=== PATIENT | female | born 1955 | race Caucasian/White ===

== ENCOUNTER 2022-09-19 11:09 | Observation (INO) | payer BC, MEDICARE ==
[2022-09-19] MEDS ORDERED: KETOROLAC 15 MG/ML 1 ML VIAL IVP STA (12:08)
[2022-09-19] MEDS ORDERED: SODIUM CHLORIDE 0.9% 500 ML 500 ML IV STA (12:08)
--- NOTE | 2022-09-19 12:13 | ED ---
General Adult HPI - General Chief complaint: Abdominal Pain Stated complaint: Recheck Time Seen by Provider: 09/19/22 11:40 Source: patient, RN notes reviewed, old records reviewed Mode of arrival: ambulatory Limitations: no limitations - History of Present Illness Initial comments: This is a 67-year-old female presents emergency pertinent stating she had a couple sharp pains in her CVA area on Thursday and Thursday however once he started having severe pain in the CVA area that wraps around to the front under her right breast. Patient states that taking deep breath makes it worse movement makes it worse but the pain is now quite severe. Patient denies any chest pain. Patient denies shortness of breath but it is painful to take a deep breath. P atient denies any fever chills per patient denies abdominal pain patient denies nausea vomiting diarrhea. - Related Data Allergies Allergy/AdvReac Type Severity Reaction Status Date / Time No Known Allergies Allergy Verified 09/19/22 11:25 Review of Systems ROS Statement: Those systems with pertinent positive or pertinent negative responses have been documented in the HPI. ROS Other: All systems not noted in ROS Statement are negative. Past Medical History Past Medical History: No Reported History History of Any Multi-Drug Resistant Organisms: None Reported Past Surgical History: Section, Cholecystectomy Additional Past Surgical History / Comment(s): c section x 3, B cataract, B knee, L foot achilles tendon correction, d&c Past Psychological History: No Psychological Hx Reported Smoking Status: Never smoker Past Alcohol Use History: Occasional Past Drug Use History: None Reported General Exam - General Exam Comments Initial Comments: GENERAL: Patient is well-developed and well-nourished. Patient is nontoxic and well- hydrated and is in moderate distress. ENT: Neck is soft and supple. No significant lymphadenopathy is noted. Oropharynx is clear. Moist mucous membranes. Neck has full range of motion without eliciting any pain. EYES: The sclera were anicteric and conjunctiva were pink and moist. Extraocular movements were intact and pupils were equal round and reactive to light. Eyelids were unremarkable. PULMONARY: Unlabored respirations. Good breath sounds bilaterally. No audible rales rhonchi or wheezing was noted. CARDIOVASCULAR: There is a regular rate and rhythm without any murmurs gallops or rubs. Patient has pain on palpation in the CVA area as well as on the flank. ABDOMEN: Soft and nontender with normal bowel sounds. SKIN: Skin is clear with no lesions or rashes and otherwise unremarkable. NEUROLOGIC: Patient is alert and oriented x3. Cranial nerves II through XII are grossly intact. Motor and sensory are also intact. Normal speech, volume and content. Symmetrical smile. MUSCULOSKELETAL: Normal extremities with adequate strength and full range of motion. LYMPHATICS: No significant lymphadenopathy is noted PSYCHIATRIC: Normal psychiatric evaluation. Limitations: no limitations Course Vital Signs 09/19/22 09/19/22 11:26 13:46 Temperature 98.9 F Pulse Rate 111 H 97 Respiratory 1 L 18 Rate Blood Pressure 134/68 125/58 O2 Sat by Pulse 95 95 Oximetry Medical Decision Making - Medical Decision Making Was pt. sent in by a medical professional or institution (, PA, INSURANCE SALES PRODUCER, urgent care, hospital, or detention...) When possible be specific @ -No Did you speak to anyone other than the patient for history (EMS, parent, family, police, friend...)? What history was obtained from this source @ -No Did you review nursing and triage notes (agree or disagree)? Why? @ -I reviewed and agree with nursing and triage notes Were old charts reviewed (outside hosp., previous admission, EMS record, old EKG, old radiological studies, urgent care reports/EKG's, detention records)? Report findings @ -I reviewed prior radiological studies and prior laboratory work on this patient Differential Diagnosis (chest pain, altered mental status, abdominal pain women, abdominal pain men, vaginal bleeding, weakness, fever, dyspnea, syncope, headache, dizziness, GI bleed, back pain, seizure, CVA, palpatations, mental health, musculoskeletal)? @ -Differential Dyspnea: Coronary syndrome, arrhythmia, tamponade, asthma, COPD, pulmonary embolism, pneumonia, pneumothorax, pulmonary effusion, anaphylaxis, diabetic ketoacidosis, flailed chest, pulmonary contusion, diaphragmatic rupture, anemia, neuromuscular, this is not meant to be an all-inclusive list. EKG interpreted by me (3pts min.). @ -As above X-rays interpreted by me (1pt min.). @ -Chest x-ray showed no acute abnormality. CT interpreted by me (1pt min.). @ -CT of the chest showed no pulmonary embolism in the right lower lobe U/S interpreted by me (1pt. min.). @ -None done What testing was considered but not performed or refused? (CT, X-rays, U/S, labs)? Why? @ -None What meds were considered but not given or refused? Why? @ -None Did you discuss the management of the patient with other professionals (professionals i.e. , PA, INSURANCE SALES PRODUCER, lab, RT, psych nurse, director social welfare, bisque kiln placer, teacher, property disposal officer, social work case manager)? Give summary @ -I spoke with Dr. Nichole he agreed to admit the patient Was smoking cessation discussed for >3mins.? @ -No Was critical care preformed (if so, how long)? @ -35 minutes Were there social determinants of health that impacted care today? How? (Homelessness, low income, unemployed, alcoholism, drug addiction, transportation, low edu. Level, literacy, decrease access to med. care, assisted, rehab)? @ -No Was there de-escalation of care discussed even if they declined (Discuss DNR or withdrawal of care, Hospice)? DNR status @ -No What co-morbidities impacted this encounter? (DM, HTN, Smoking, COPD, CAD, Cancer, CVA, ARF, Chemo, Hep., AIDS, mental health diagnosis, sleep apnea, morbid obesity)? @ -None Was patient admitted / discharged? Hospital course, mention meds given and route, prescriptions, significant lab abnormalities, going to OR and other pertinent info. @ -Patient had a pulmonary embolism on the computed tomography scan so I started the patient on high-dose heparin. I spoke with because he agreed to admit the patient admitted the patient I wrote admitting orders I consulted cardiology. There was no right heart strain according to the radiologist Undiagnosed new problem with uncertain prognosis? @ -No Drug Therapy requiring intensive monitoring for toxicity (Heparin, Nitro, Insulin, Cardizem)? @ -No Were any procedures done? @ -No Diagnosis/symptom? @ -Pulmonary embolism Acute, or Chronic, or Acute on Chronic? @ -Acute Uncomplicated (without systemic symptoms) or Complicated (systemic symptoms)? @ -Complicated Side effects of treatment? @ -No Exacerbation, Progression, or Severe Exacerbation? @ -No Poses a threat to life or bodily function? How? (Chest pain, [place], [place], pneumonia, PE, COPD, DKA, ARF, appy, cholecystitis, CVA, Diverticulitis, Homicidal, Suicidal, threat to staff... and all critical care pts) @ -Yes this can lead to hypoxia and end organ dysfunction - Lab Data Result diagrams: 09/19/22 12:13 09/19/22 12:13 Lab Results 09/19/22 09/19/22 09/19/22 Range/Units 12:13 12:13 12:13 WBC 7.9 (3.8-10.6) k/uL RBC 4.94 (3.80-5.40) m/uL Hgb 14.2 (11.4-16.0) gm/dL Hct 42.5 (34.0-46.0) % MCV 86.0 (80.0-100.0) fL MCH 28.8 (25.0-35.0) pg MCHC 33.5 (31.0-37.0) g/dL RDW 14.2 (11.5-15.5) % Plt Count 219 (150-450) k/uL MPV 7.6 Neutrophils % 80 % Lymphocytes % 12 % Monocytes % 6 % Eosinophils % 0 % Basophils % 0 % Neutrophils # 6.3 (1.3-7.7) k/uL Lymphocytes # 0.9 L (1.0-4.8) k/uL Monocytes # 0.5 (0-1.0) k/uL Eosinophils # 0.0 (0-0.7) k/uL Basophils # 0.0 (0-0.2) k/uL PT 10.7 (9.0-12.0) sec INR 1.0 (<1.2) APTT 25.3 (22.0-30.0) sec D-Dimer 1.74 H (<0.60) mg/L FEU Sodium (137-145) mmol/L Potassium (3.5-5.1) mmol/L Chloride (98-107) mmol/L Carbon Dioxide (22-30) mmol/L Anion Gap mmol/L BUN (7-17) mg/dL Creatinine (0.52-1.04) mg/dL Est GFR (CKD-EPI)AfAm (>60 ml/min/1.73 sqM) Est GFR (CKD-EPI)NonAf (>60 ml/min/1.73 sqM) Glucose (74-99) mg/dL Plasma Lactic Acid Ru[place] (0.7-2.0) mmol/L Calcium (8.4-10.2) mg/dL Total Bilirubin (0.2-1.3) mg/dL AST (14-36) U/L ALT (4-34) U/L Alkaline Phosphatase (38-126) U/L Total Protein (6.3-8.2) g/dL Albumin (3.5-5.0) g/dL Amylase (30-110) U/L Lipase (23-300) U/L Urine Color Yellow Urine Appearance Clear (Clear) Urine pH 6.5 (5.0-8.0) Ur Specific [place] 1.031 (1.001-1.035) Urine Protein 1+ H (Negative) Urine Glucose (UA) Negative (Negative) Urine Ketones 1+ H (Negative) Urine Blood Negative (Negative) Urine Nitrite Negative (Negative) Urine Bilirubin Negative (Negative) Urine Urobilinogen 2.0 (<2.0) mg/dL Ur Leukocyte Esterase Trace H (Negative) Urine RBC 4 (0-5) /hpf Urine WBC 3 (0-5) /hpf Ur Squamous Epith Cells 1 (0-4) /hpf Urine Mucus Many H (None) /hpf 09/19/22 09/19/22 Range/Units 12:13 12:13 WBC (3.8-10.6) k/uL RBC (3.80-5.40) m/uL Hgb (11.4-16.0) gm/dL Hct (34.0-46.0) % MCV (80.0-100.0) fL MCH (25.0-35.0) pg MCHC (31.0-37.0) g/dL RDW (11.5-15.5) % Plt Count (150-450) k/uL MPV Neutrophils % % Lymphocytes % % Monocytes % % Eosinophils % % Basophils % % Neutrophils # (1.3-7.7) k/uL Lymphocytes # (1.0-4.8) k/uL Monocytes # (0-1.0) k/uL Eosinophils # (0-0.7) k/uL Basophils # (0-0.2) k/uL PT (9.0-12.0) sec INR (<1.2) APTT (22.0-30.0) sec D-Dimer (<0.60) mg/L FEU Sodium 137 (137-145) mmol/L Potassium 4.4 (3.5-5.1) mmol/L Chloride 104 (98-107) mmol/L Carbon Dioxide 25 (22-30) mmol/L Anion Gap 8 mmol/L BUN 19 H (7-17) mg/dL Creatinine 0.70 (0.52-1.04) mg/dL Est GFR (CKD-EPI)AfAm >90 (>60 ml/min/1.73 sqM) Est GFR (CKD-EPI)NonAf 89 (>60 ml/min/1.73 sqM) Glucose 103 H (74-99) mg/dL Plasma Lactic Acid Ru[place] 1.0 (0.7-2.0) mmol/L Calcium 9.0 (8.4-10.2) mg/dL Total Bilirubin 1.5 H (0.2-1.3) mg/dL AST 37 H (14-36) U/L ALT 29 (4-34) U/L Alkaline Phosphatase 120 (38-126) U/L Total Protein 7.9 (6.3-8.2) g/dL Albumin 4.4 (3.5-5.0) g/dL Amylase 55 (30-110) U/L Lipase 125 (23-300) U/L Urine Color Urine Appearance (Clear) Urine pH (5.0-8.0) Ur Specific [place] (1.001-1.035) Urine Protein (Negative) Urine Glucose (UA) (Negative) Urine Ketones (Negative) Urine Blood (Negative) Urine Nitrite (Negative) Urine Bilirubin (Negative) Urine Urobilinogen (<2.0) mg/dL Ur Leukocyte Esterase (Negative) Urine RBC (0-5) /hpf Urine WBC (0-5) /hpf Ur Squamous Epith Cells (0-4) /hpf Urine Mucus (None) /hpf Critical Care Time Critical Care Time: Yes Total Critical Care Time: 35 Disposition Clinical Impression: Pulmonary embolism Disposition: ADMITTED IP TO THIS [facility] Referrals: Nonstaff,Physician [Primary Care Provider] - 1-2 days Time of Disposition: 14:43
[2022-09-19] MEDS: HYDROmorphone 0.5 MG/0.5 ML SYRINGE IVP STA ×2 (12:18→12:22)
[2022-09-19] MEDS ORDERED: HYDROmorphone 0.5 MG/0.5 ML SYRINGE IVP STA (12:22)
[2022-09-19 12:37] LABS: Basophils % (A) 0 %; Eosinophils % (A) 0 %; HCT 42.5 % (34.0-46.0); HGB 14.2 gm/dL (11.4-16.0); Lymphocytes # (A) 0.9 k/uL (1.0-4.8); Lymphocytes % (A) 12 %; MCH 28.8 pg (25.0-35.0); MCHC 33.5 g/dL (31.0-37.0); Mean Platelet Volume 7.6; Monocytes # (A) 0.5 k/uL (0-1.0); Monocytes % (A) 6 %; Neutrophils # (A) 6.3 k/uL (1.3-7.7); Neutrophils % (A) 80 %; Platelet Count 219 k/uL (150-450); RBC 4.94 m/uL (3.80-5.40); RDW 14.2 % (11.5-15.5); WBC 7.9 k/uL (3.8-10.6)
[2022-09-19 12:39] LABS: ALT 29 U/L (4-34); AST 37 U/L (14-36); African American GFR (CKD) >90 (>60 ml/min/1.73 sqM); Albumin 4.4 g/dL (3.5-5.0); Alkaline Phosphatase 120 U/L (38-126); Amylase 55 U/L (30-110); Anion Gap 8 mmol/L; Appearance,Urine Clear (Clear); Bilirubin,Urine Negative (Negative); Blood Urea Nitrogen 19 mg/dL (7-17); Blood,Urine Negative (Negative); Carbon Dioxide 25 mmol/L (22-30); Chloride 104 mmol/L (98-107); Color,Urine Yellow; Glucose 103 mg/dL (74-99); Glucose,Urine (UA) Negative (Negative); Ketones,Urine 1+ (Negative); Leukocyte Esterase,Urine Trace (Negative); Lipase 125 U/L (23-300); Mucus,Urine Many /hpf; Nitrite,Urine Negative (Negative); Non-African American GFR(CKD) 89 (>60 ml/min/1.73 sqM); PH, Urine 6.5 (5.0-8.0); Potassium 4.4 mmol/L (3.5-5.1); Protein,Urine 1+ (Negative); RBC,Urine 4 /hpf (0-5); Sodium 137 mmol/L (137-145); Specific Gravity,Urine 1.031 (1.001-1.035); Squamous Epithelial Cell,Urine 1 /hpf (0-4); Total Bilirubin 1.5 mg/dL (0.2-1.3); Total Protein 7.9 g/dL (6.3-8.2); WBC,Urine 3 /hpf (0-5)
--- NOTE | 2022-09-19 12:40 | XR ---
EXAMINATION TYPE: XR chest 2V DATE OF EXAM: 09/19/2022 COMPARISON: NONE HISTORY: Right-sided chest pain into back for 2 days. Abdominal pain. TECHNIQUE: Frontal and lateral views of the chest are obtained. FINDINGS: There is no focal air space opacity, pleural effusion, or pneumothorax seen. The cardiac silhouette size is within normal limits. Multilevel spurring in thoracic spine is seen. Cholecystecto my clips are noted. IMPRESSION: No acute cardiopulmonary process.
[2022-09-19 12:46] LABS: Partial Thromboplastin Time 25.3 sec (22.0-30.0); Prothrombin Time 10.7 sec (9.0-12.0)
--- NOTE | 2022-09-19 14:04 | CT ---
EXAMINATION TYPE: CT abdomen pelvis w con DATE OF EXAM: 09/19/2022 COMPARISON: None INDICATION: Right flank pain DLP: 1991.6 mGycm, Automated exposure control for dose reduction was used. CONTRAST: 100 mL of Isovue 370. Study performed without Oral Contrast TECHNIQUE: Axial images were obtained from above the diaphragm to the pubic rami in the axial plane a t 5 mm thick sections. Reconstructed images are reviewed on the computer in the coronal plane. FINDINGS: Limited CT sections are obtained the lung bases. Small right pleural effusion is present. Compressiv e atelectasis appears to be within the right lung base.. CT ABDOMEN: Liver: Normal Spleen: Normal Pancreas: Normal Adrenal glands: The adrenal glands are normal. Gallbladder: Surgically absent Kidneys: No masses are evident. No hydronephrosis is present. No cysts are present. Delayed images were obtained through the kidneys, which remain unremarkable. Aorta: Normal Inferior vena cava: Normal. CT PELVIS: Loops of bowel within the abdomen and pelvis are normal. This study is performed without oral con trast limiting bowel evaluation. Appendix: Not clearly identified. No dilated tubular structure or inflammatory change is evident. Urinary bladder: Normal. Genitourinary structures: Uterus appears normal. Adnexa are normal. Osseous structures: No suspicious lytic or sclerotic lesions. IMPRESSIONS: 1. Small right pleural effusion with adjacent compressive atelectasis. 2 no suspicious acute changes within the CT abdomen and pelvis.
[2022-09-19] MEDS ORDERED: HEPARIN SODIUM 1,000 UN/ML (10ML VL) IV ONE (14:09)
--- NOTE | 2022-09-19 14:13 | CT ---
CT CHEST FOR PULMONARY EMBOLISM. EXAMINATION TYPE: CT chest angio for PE DATE OF EXAM: 09/19/2022 INDICATION: Elevated d dimer, SOB CT DLP: 570 mGycm, Automated exposure control for dose reduction was used. CONTRAST: Patient injected with 100 mL of Isovue 370. COMPARISON: None TECHNIQUE: CT of the chest is performed on a spiral scan at 2 mm thick sections. Study is performed with intravenous contrast timed for evaluation for pulmonary embolism. This will limit additional po rtions of the evaluation. 3-D MIP images reconstructed by the technologist are reviewed on the compu ter in the coronal and sagittal planes. FINDINGS: There is some filling defect within right lower lobe pulmonary arteries. Distal pulmonary emboli appe ar to be present on the right lung base. No acute infiltrates are evident. No mediastinal or hilar adenopathy enlarged by CT criteria is evident. The ascending aorta diameter at the level of the main pulmonary artery is 3.3 cm. The main pulmonary artery diameter at the bifur cation is 2.6 cm. There is a small right pleural effusion with some mild compressive atelectasis adjacent. Limited CT section through the upper abdomen are unremarkable. IMPRESSIONS: 1. Acute right lower lobe pulmonary emboli. Report was called to the emergency room physician by Dr. Ackerman by telephone [id number] hours 09/19/2022. 2. Small right pleural effusion with adjacent mild compressive atelectasis.
[2022-09-19] MEDS: HEPARIN SOD,PORK IN 0.45% NACL 25,000 UNIT in 0.45% NACL 1 250ML.BAG IV SCH (14:31)
[2022-09-19] MEDS ORDERED: KETOROLAC 15 MG/ML 1 ML VIAL IVP PRN ×2 (14:43→15:46)
[2022-09-19] MEDS ORDERED: NALOXONE 0.4 MG/ML 1 ML VIAL IV PRN (14:43)
[2022-09-19] MEDS ORDERED: HYDROmorphone 0.5 MG/0.5 ML SYRINGE IVP PRN (14:43)
--- NOTE | 2022-09-19 16:33 | P.HPIM ---
History of Present Illness 67-year-old female came in with the sharp pleuritic chest pain on the right side, had a CT of the chest which showed right lower lobe pulmonary embolism. Patient denied any family history of PEs, patient denied any recent weight loss, to date with all his cancer screening procedures, denied any recent prolonged travel denied any calf pain, denied any recent surgery, troponin will be obtained. Echocardiogram will be obtained patient is presently on IV heparin if there is no right ventricular strain patient can be transitioned to oral anticoagulation can be discharged tomorrow. REVIEW OF SYSTEMS: CONSTITUTIONAL: No fever, no malaise, no fatigue. HEENT: No recent visual problems or hearing problems. Denied any sore throat. CARDIOVASCULAR: No orthopnea, PND, no palpitations, no syncope. PULMONARY: No shortness of breath, no cough, no hemoptysis. GASTROINTESTINAL: No diarrhea, no nausea, no vomiting, no abdominal pain. NEUROLOGICAL: No headaches, no weakness, no numbness. HEMATOLOGICAL: Denies any bleeding or petechiae. GENITOURINARY: Denies any burning micturition, frequency, or urgency. MUSCULOSKELETAL/RHEUMATOLOGICAL: Denies any joint pain, swelling, or any muscle pain. ENDOCRINE: Denies any polyuria or polydipsia. The rest of the 14-point review of systems is negative. PHYSICAL EXAMINATION: GENERAL: The patient is alert and oriented x3, not in any acute distress. Well developed, well nourished. HEENT: Pupils are round and equally reacting to light. EOMI. No scleral icterus. No conjunctival pallor. Normocephalic, atraumatic. No pharyngeal erythema. No thyromegaly. CARDIOVASCULAR: S1 and S2 present. No murmurs, rubs, or gallops. PULMONARY: Chest is clear to auscultation, no wheezing or crackles. ABDOMEN: Soft, nontender, nondistended, normoactive bowel sounds. No palpable organomegaly. MUSCULOSKELETAL: No joint swelling or deformity. EXTREMITIES: No cyanosis, clubbing, or pedal edema. NEUROLOGICAL: Gross neurological examination did not reveal any focal deficits. SKIN: No rashes. Assessment and plan Right lower lobe pulmonary embolism: Echocardiogram will be obtained to assess for right ankle strain, patient is on IV heparin which will be continued with is noted when questioned patient will be transitioned to oral anticoagulation and can be discharged tomorrow. Patient appears to have unprovoked DVT. Patient to be evaluated for procoagulant conditions in about 3-6 months after stopping the anticoagulation -Obesity Past Medical History Past Medical History: No Reported History History of Any Multi-Drug Resistant Organisms: None Reported Past Surgical History: Section, Cholecystectomy Additional Past Surgical History / Comment(s): c section x 3, B cataract, B knee, L foot achilles tendon correction, d&c Past Psychological History: No Psychological Hx Reported Smoking Status: Never smoker Past Alcohol Use History: Occasional Past Drug Use History: None Reported Medications and Allergies Home Medications Medication Instructions Recorded Confirmed Type Cholecalciferol (Vitamin D3) 75 mcg PO DAILY 09/19/22 09/19/22 History [Vitamin D3 (3000 Iu)] Ginkgo Biloba [place] Extract [Ginkgo] 60 mg PO DAILY 09/19/22 09/19/22 History Glucosam/Brandon-Msm1/C/Farhan/Bosw 1 tab PO DAILY 09/19/22 09/19/22 History [Glucosamine-Chondroitin Tablet] Multivitamins, Thera [Multivitamin 1 tab PO DAILY 09/19/22 09/19/22 History (formulary)] Turmeric Root Extract [Turmeric] 500 mg PO DAILY 09/19/22 09/19/22 History Vitamin B Complex 1 cap PO DAILY 09/19/22 09/19/22 History Allergies Allergy/AdvReac Type Severity Reaction Status Date / Time No Known Allergies Allergy Verified 09/19/22 14:51 Physical Exam Vitals: Vital Signs Temp Pulse Resp BP Pulse Ox 09/19/22 15:56 87 18 144/62 95 09/19/22 13:46 97 18 125/58 95 09/19/22 11:26 98.9 F 111 H 1 L 134/68 95 Intake and Output 09/19/22 09/19/22 09/19/22 06:59 14:59 22:59 Other: Weight 122.924 kg Results CBC & Chem 7: 09/19/22 12:13 09/19/22 12:13 Labs: Abnormal Lab Results - Last 24 Hours (Table) 09/19/22 09/19/22 09/19/22 Range/Units 12:13 12:13 12:13 Lymphocytes # 0.9 L (1.0-4.8) k/uL D-Dimer 1.74 H (<0.60) mg/L FEU BUN (7-17) mg/dL Glucose (74-99) mg/dL Total Bilirubin (0.2-1.3) mg/dL AST (14-36) U/L Urine Protein 1+ H (Negative) Urine Ketones 1+ H (Negative) Ur Leukocyte Esterase Trace H (Negative) Urine Mucus Many H (None) /hpf 09/19/22 Range/Units 12:13 Lymphocytes # (1.0-4.8) k/uL D-Dimer (<0.60) mg/L FEU BUN 19 H (7-17) mg/dL Glucose 103 H (74-99) mg/dL Total Bilirubin 1.5 H (0.2-1.3) mg/dL AST 37 H (14-36) U/L Urine Protein (Negative) Urine Ketones (Negative) Ur Leukocyte Esterase (Negative) Urine Mucus (None) /hpf
[2022-09-19] MEDS: FAMOTIDINE 20 MG TAB PO SCH (20:06)
[2022-09-20] MEDS: HEPARIN SOD,PORK IN 0.45% NACL 25,000 UNIT in 0.45% NACL 1 250ML.BAG IV SCH (03:45)
[2022-09-20 05:11] LABS: HCT 35.7 % (34.0-46.0); HGB 11.9 gm/dL (11.4-16.0); MCHC 33.4 g/dL (31.0-37.0); MCV 86.7 fL (80.0-100.0); Mean Platelet Volume 7.8; Platelet Count 190 k/uL (150-450); RBC 4.12 m/uL (3.80-5.40); RDW 14.2 % (11.5-15.5); WBC 7.6 k/uL (3.8-10.6)
[2022-09-20 05:40] LABS: African American GFR (CKD) >90 (>60 ml/min/1.73 sqM); Anion Gap 7 mmol/L; Blood Urea Nitrogen 20 mg/dL (7-17); Calcium 8.3 mg/dL (8.4-10.2); Carbon Dioxide 23 mmol/L (22-30); Chloride 104 mmol/L (98-107); Glucose 107 mg/dL (74-99); Non-African American GFR(CKD) >90 (>60 ml/min/1.73 sqM); Potassium 3.8 mmol/L (3.5-5.1); Sodium 134 mmol/L (137-145)
[2022-09-20] MEDS: FAMOTIDINE 20 MG TAB PO SCH (09:00)
[2022-09-20] MEDS ORDERED: APIXABAN 5 MG TAB PO SCH (09:00)
--- NOTE | 2022-09-20 09:11 | P.CRDCN ---
History of Present Illness History of present illness: HISTORY OF PRESENT ILLNESS: This is a 67-year-old female with a past medical history of obstructive sleep apnea with CPAP use and morbid obesity. 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 We have been asked to see the patient in consultation for pulmonary embolism. Patient examined at the bedside. Patient states she started having shortness of breath on Thursday. She states that she had pain in her lower back that wrapped around to the front. She states that the shortness of breath continued so yesterday she went to urgent care to get evaluated and was instructed to come to the emergency room. Patient underwent CTA and was found to have acute right lower lobe pulmonary embolism. She was started on IV heparin. The patient denies any chest pain or pressure. She continues to report mild shortness of breath this morning she is on room air maintaining oxygen saturations greater than 92%. She denies a history of DVT/PE. Denies a family history of DVT/PE. Patient states she has not been immobile recently. Denies any recent travel. Patient is a nonsmoker. She denies any drug use or marijuana use. She reports rare alcohol use. * EKG reveals sinus mechanism with no signs of acute ischemia * Chest xray negative for acute process * Laboratory data: WBC 7.6. Hemoglobin 11.9. Platelet count 190. D-dimer 1.74. Sodium 134. Potassium 3.8. BUN 20. Creatinine 0.62. Troponin negative 2. * Current home cardiac medications include none REVIEW OF SYSTEMS: At the time of my exam: CONSTITUTIONAL: Denies fever or chills. HEENT: Denies blurred vision, vision changes, or eye pain. Denies hemoptysis CARDIOVASCULAR: Denies chest pain. Denies orthopnea. Denies PND. Denies palpitations RESPIRATORY: Reports shortness of breath. GASTROINTESTINAL: Denies abdominal pain. Denies nausea or vomiting. HEMATOLOGIC: Denies bleeding disorders. GENITOURINARY: Denies any blood in urine. SKIN: Denies pruitis. Denies rash. PHYSICAL EXAM: VITAL SIGNS: Reviewed. GENERAL: Well-developed in no acute distress. HEENT: Head is normocephalic. Pupils are equal, round. Sclerae anicteric. Mucous membranes of the mouth are moist. Neck supple. No JVD or thyromegaly LUNGS: Respirations even and unlabored. Lungs essentially clear to auscultation bilaterally. HEART: Regular rate and rhythm. S1 and S2 heard. ABDOMEN: Soft. Nondistended. Nontender. EXTREMITIES: Normal range of motion. No clubbing or cyanosis. Peripheral pulses intact. No lower extremity edema NEUROLOGIC: Awake and alert. Oriented x 3. ASSESSMENT: Shortness of breath Acute right lower lobe pulmonary embolism Obstructive sleep apnea with CPAP use Morbid obesity: BMI 42.4 PLAN: No evidence of heart strain on CTA. 2-D echo ordered. Await results Discontinue IV heparin. Begin Eliquis 10mg BID x 7 days then decrease to 5 mg BID Continue telemetry monitoring Further recommendations pending patient's course Nurse practitioner note has been reviewed by physician. Signing provider agrees with the documented findings, assessment, and plan of care. Past Medical History Past Medical History: No Reported History History of Any Multi-Drug Resistant Organisms: None Reported Past Surgical History: Section, Cholecystectomy Additional Past Surgical History / Comment(s): c section x 3, B cataract, B knee, L foot achilles tendon correction, d&c Past Anesthesia/Blood Transfusion Reactions: Previous Problems w/ Anesthesia Additional Past Anesthesia/Blood Transfusion Reaction / Comment(s): problems maintaining airway. Past Psychological History: No Psychological Hx Reported Smoking Status: Never smoker Past Alcohol Use History: Occasional Past Drug Use History: None Reported Medications and Allergies Home Medications Medication Instructions Recorded Confirmed Type Cholecalciferol (Vitamin D3) 75 mcg PO DAILY 09/19/22 09/19/22 History [Vitamin D3 (3000 Iu)] Ginkgo Biloba [place] Extract [Ginkgo] 60 mg PO DAILY 09/19/22 09/19/22 History Glucosam/Brandon-Msm1/C/Farhan/Bosw 1 tab PO DAILY 09/19/22 09/19/22 History [Glucosamine-Chondroitin Tablet] Multivitamins, Thera [Multivitamin 1 tab PO DAILY 09/19/22 09/19/22 History (formulary)] Turmeric Root Extract [Turmeric] 500 mg PO DAILY 09/19/22 09/19/22 History Vitamin B Complex 1 cap PO DAILY 09/19/22 09/19/22 History Allergies Allergy/AdvReac Type Severity Reaction Status Date / Time No Known Allergies Allergy Verified 09/19/22 14:51 Physical Exam Vitals: Vital Signs Temp Pulse Pulse Resp BP BP Pulse Ox 09/20/22 04:00 105 H 16 121/73 95 09/20/22 00:00 118 H 16 136/80 94 L 09/19/22 20:00 98.3 F 93 16 120/72 94 L 09/19/22 17:00 98.2 F 98 19 136/79 97 09/19/22 15:56 87 18 144/62 95 09/19/22 13:46 97 18 125/58 95 09/19/22 11:26 98.9 F 111 H 1 L 134/68 95 Intake and Output 09/19/22 09/20/22 09/20/22 22:59 06:59 14:59 Intake Total 265.251 669.688 Balance 265.251 669.688 Intake: Intake, IV Titration 155.251 129.688 Amount Heparin Sod,Pork in 0.45% 155.251 129.688 NaCl 25,000 unit In 0.45 % NaCl 1 250ml.bag @ 18 UNITS/KG/HR 22.126 mls/hr IV .[id number] [facility] Rx#: [id number] Oral 110 540 Other: Voiding Method Toilet Toilet # Voids 1 Weight 122.924 kg Results 09/20/22 04:42 09/20/22 04:42 Cardiac Enzymes 09/19/22 09/19/22 09/20/22 Range/Units 12:05 12:13 04:42 AST 37 H (14-36) U/L Troponin I <0.012 <0.012 (0.000-0.034) ng/mL Coagulation 09/19/22 09/19/22 09/20/22 Range/Units 12:13 20:52 04:42 PT 10.7 (9.0-12.0) sec APTT 25.3 >200.0 H* 133.1 H* (22.0-30.0) sec CBC 09/19/22 09/20/22 Range/Units 12:13 04:42 WBC 7.9 7.6 (3.8-10.6) k/uL RBC 4.94 4.12 (3.80-5.40) m/uL Hgb 14.2 11.9 (11.4-16.0) gm/dL Hct 42.5 35.7 (34.0-46.0) % Plt Count 219 190 (150-450) k/uL Comprehensive Metabolic Panel 09/19/22 09/20/22 Range/Units 12:13 04:42 Sodium 137 134 L (137-145) mmol/L Potassium 4.4 3.8 (3.5-5.1) mmol/L Chloride 104 104 (98-107) mmol/L Carbon Dioxide 25 23 (22-30) mmol/L BUN 19 H 20 H (7-17) mg/dL Creatinine 0.70 0.62 (0.52-1.04) mg/dL Glucose 103 H 107 H (74-99) mg/dL Calcium 9.0 8.3 L (8.4-10.2) mg/dL AST 37 H (14-36) U/L ALT 29 (4-34) U/L Alkaline Phosphatase 120 (38-126) U/L Total Protein 7.9 (6.3-8.2) g/dL Albumin 4.4 (3.5-5.0) g/dL Current Medications Generic Name Dose Route Start Last Admin Trade Name Freq PRN Reason Stop Dose Admin Famotidine 20 mg 09/19/22 21:00 09/19/22 20:06 Famotidine 20 Mg Tab PO 20 mg BID ADALBERTO Administration Hydromorphone HCl 0.5 mg 09/19/22 14:43 Hydromorphone 0.5 Mg/0.5 Ml Syringe IVP Q3HR PRN Moderate Pain (Scale 4 to 6) Heparin Sodium/Sodium Chloride 250 mls @ 22.126 mls/hr 09/19/22 14:15 09/20/22 06:42 25,000 unit/ Sodium Chloride IV 12 units/kg/hr .[id number] ADALBERTO 14.751 mls/hr Titration Protocol 18 UNITS/KG/HR Ketorolac Tromethamine 15 mg 09/19/22 15:46 Ketorolac 15 Mg/Ml 1 Ml Vial IVP 09/24/22 15:47 Q6HR PRN Pain Naloxone HCl 0.2 mg 09/19/22 14:43 Naloxone 0.4 Mg/Ml 1 Ml Vial IV Q2M PRN Opioid Reversal Intake and Output 09/19/22 09/20/22 09/20/22 22:59 06:59 14:59 Intake Total 265.251 669.688 Balance 265.251 669.688 Intake: Intake, IV Titration 155.251 129.688 Amount Heparin Sod,Pork in 0.45% 155.251 129.688 NaCl 25,000 unit In 0.45 % NaCl 1 250ml.bag @ 18 UNITS/KG/HR 22.126 mls/hr IV .[id number] [facility] Rx#: [id number] Oral 110 540 Other: Voiding Method Toilet Toilet # Voids 1 Weight 122.924 kg 09/20/22 04:42 09/20/22 04:42
--- NOTE | 2022-09-20 10:21 | CA ---
Transthoracic Echo Report Name: Nora Lechuga Age: 67 Gender: F : 1955 Exam Date: 09/19/2022 14:59 Exam Location: [facility] Ht (in): 67 Wt (lb): 271 Ordering Physician: Kade Tai MD Attending/Referring Phys: Certified Legal Secretary Specialist Linden Mcgovern Procedure CPT: Indications: Pulmonary Embolism Cardiac Hx: Technical Quality: Fair Contrast 1: Total Dose (mL): Contrast 2: Total Dose (mL): MEASUREMENTS (Male / Female) Normal Values 2D ECHO LV Diastolic Diameter PLAX 5.0 cm 4.2 - 5.9 / 3.9 - 5.3 cm LV Systolic Diameter PLAX 3.6 cm IVS Diastolic Thickness 1.0 cm 0.6 - 1.0 / 0.6 - 0.9 cm LVPW Diastolic Thickness 1.1 cm 0.6 - 1.0 / 0.6 - 0.9 cm LV Relative Wall Thickness 0.4 RV Internal Dim ED PLAX 3.0 cm LVOT Diameter 2.2 cm Aortic Root Diameter 2.5 cm LA Systolic Diameter LX 3.3 cm 3.0 - 4.0 / 2.7 - 3.8 cm LV Diastolic Volume MOD BP 57.0 cm??? 67 - 155 / 56 - 104 cm??? LV Systolic Volume MOD BP 14.9 cm??? 22 - 58 / 19 - 49 cm??? LV Ejection Fraction MOD BP 73.9 % >= 55 % LV Diastolic Volume MOD 4C 75.5 cm??? LV Systolic Volume MOD 4C 22.2 cm??? LV Ejection Fraction MOD 4C 70.6 % LV Diastolic Length 4C 7.7 cm LV Systolic Length 4C 6.3 cm LV Diastolic Volume MOD 2C 40.6 cm??? LV Systolic Volume MOD 2C 9.6 cm??? LV Ejection Fraction MOD 2C 76.4 % LV Diastolic Length 2C 7.2 cm LV Systolic Length 2C 6.0 cm LA Volume 49.5 cm??? 18 - 58 / 22 - 52 cm??? Ascending Aorta Diameter 3.1 cm DOPPLER AV Peak Velocity 166.9 cm/s AV Peak Gradient 11.1 mmHg AV Mean Velocity 118.9 cm/s AV Mean Gradient 6.8 mmHg AV Velocity Time Integral 37.9 cm LVOT Peak Velocity 100.2 cm/s LVOT Peak Gradient 4.0 mmHg LVOT Velocity Time Integral 23.7 cm LVOT Stroke Volume 88.5 cm??? LVOT Stroke Volume Index 38.5 ml/m??? AV Area Cont Eq vti 2.3 cm??? AV Area Cont Eq pk 2.2 cm??? MV Peak Velocity 136.8 cm/s MV Peak Gradient 7.5 mmHg MV Mean Velocity 59.4 cm/s MV Mean Gradient 1.9 mmHg MV Velocity Time Integral 32.3 cm MV Area PHT 6.2 cm??? MR Peak Velocity 139.8 cm/s MR Peak Gradient 7.8 mmHg Mitral E Point Velocity 85.0 cm/s Mitral A Point Velocity 130.8 cm/s Mitral E to A Ratio 0.6 MV Deceleration Time 122.6 ms MV E' Velocity 5.6 cm/s Mitral E to MV E' Ratio 15.1 FINDINGS Left Ventricle Normal LV size . Mildly increased septal wall thickness. Mildly increased posterior wall thickness. Left ventricular ejection fraction is estimated at 50-55 %. Right Ventricle Normal right ventricular size. Right Atrium Normal right atrial size. Left Atrium Normal left atrial size. Mitral Valve Structurally normal mitral valve. No mitral regurgitation. No mitral stenosis. Aortic Valve Aortic valve not well visualized. No aortic valve stenosis or regurgitation. Tricuspid Valve Tricuspid valve not well visualized. Trace TR. Pulmonic Valve Pulmonic valve not well visualized. No pulmonic regurgitation. Pericardium Normal pericardium. Aorta Normal size aortic root and proximal ascending aorta. CONCLUSIONS Normal LV systolic function Previewed by: Dr. Curly Sotomayor MD (Electronically Signed) Final Date: 20 September 2022 10:20
[2022-09-20 12:24] VITALS: BP 137/82; PULSE 102; RESP 17; TEMP 99.2
--- NOTE | 2022-09-20 13:49 | P.DS ---
Providers Date of admission: 09/19/22 15:17 Attending physician: Kai Nichole Consults: 09/19/22 14:43 Consult Physician Urgent Consulting Provider: [facility] Consult Reason/Comments: Pulmonary embolism Do you want consulting provider notified?: Yes Primary care physician: Physician Nonstaff Hospital Course: 67-year-old female came in with the sharp pleuritic chest pain on the right side, had a CT of the chest which showed right lower lobe pulmonary embolism. Patient denied any family history of PEs, patient denied any recent weight loss, to date with all his cancer screening procedures, denied any recent prolonged travel denied any calf pain, denied any recent surgery, troponin will be obtained. Echocardiogram will be obtained patient is presently on IV heparin if there is no right ventricular strain patient can be transitioned to oral anticoagulation can be discharged tomorrow. 09/20/2022 Patient's chest pain resolved patient is clinically doing well will be dischar ged today. PHYSICAL EXAMINATION: GENERAL: The patient is alert and oriented x3, not in any acute distress. Well developed, well nourished. HEENT: Pupils are round and equally reacting to light. EOMI. No scleral icterus. No conjunctival pallor. Normocephalic, atraumatic. No pharyngeal erythema. No thyromegaly. CARDIOVASCULAR: S1 and S2 present. No murmurs, rubs, or gallops. PULMONARY: Chest is clear to auscultation, no wheezing or crackles. ABDOMEN: Soft, nontender, nondistended, normoactive bowel sounds. No palpable organomegaly. MUSCULOSKELETAL: No joint swelling or deformity. EXTREMITIES: No cyanosis, clubbing, or pedal edema. NEUROLOGICAL: Gross neurological examination did not reveal any focal deficits. SKIN: No rashes. Assessment and plan Right lower lobe pulmonary embolism: Patient doesn't have a pulmonary hypertension or right Ventricular strain and patient is hemodynamically stable. Patient will be discharged today on oral anticoagulation -Obesity Plan - Discharge Summary Discharge Rx Participant: No New Discharge Prescriptions: New Apixaban [Eliquis Starter Pack (for VTE)] 0 mg PO DIRECTED 30 Days #1 pack No Action Turmeric Root Extract [Turmeric] 500 mg PO DAILY Glucosam/Brandon-Msm1/C/Farhan/Bosw [Glucosamine-Chondroitin Tablet] 1 tab PO DAILY Ginkgo Biloba [place] Extract [Ginkgo] 60 mg PO DAILY Vitamin B Complex 1 cap PO DAILY Cholecalciferol (Vitamin D3) [Vitamin D3 (3000 Iu)] 75 mcg PO DAILY Multivitamins, Thera [Multivitamin (formulary)] 1 tab PO DAILY Discharge Medication List Cholecalciferol (Vitamin D3) [Vitamin D3 (3000 Iu)] 75 mcg PO DAILY 09/19/22 [History] Ginkgo Biloba [place] Extract [Ginkgo] 60 mg PO DAILY 09/19/22 [History] Glucosam/Brandon-Msm1/C/Farhan/Bosw [Glucosamine-Chondroitin Tablet] 1 tab PO DAILY 09/19/22 [History] Multivitamins, Thera [Multivitamin (formulary)] 1 tab PO DAILY 09/19/22 [ History] Turmeric Root Extract [Turmeric] 500 mg PO DAILY 09/19/22 [History] Vitamin B Complex 1 cap PO DAILY 09/19/22 [History] Apixaban [Eliquis Starter Pack (for VTE)] 0 mg PO DIRECTED 30 Days #1 pack 09/20/22 [Rx] Follow up Appointment(s)/Referral(s): Francesco Pearson MD [STAFF PHYSICIAN] - As Needed (schedule for three months) Nonstaff,Physician [Primary Care Provider] - 1-2 days (make your follow up appointment with your primary care provider) Patient Instructions/Handouts: Pulmonary Embolism (DC), Safe Use of Anticoagulants (ED), Blood Thinners (DC)
== END 2022-09-20 13:50 | disposition home or self-care (01) ==
LOC: EC 11:09 → 3SCARD 15:17
PROVIDERS: ADMIT Internal Medicine; ATTEND Internal Medicine
DX: I26.99 Other pulmonary embolism without acute cor pulmonale (principal); Z90.49 Acquired absence of other specified parts of digestive tract; Z98.42 Cataract extraction status, left eye; Z98.41 Cataract extraction status, right eye; Z98.890 Other specified postprocedural states; Z98.891 History of uterine scar from previous surgery; E66.01 Morbid (severe) obesity due to excess calories; Z68.41 Body mass index [BMI] 40.0-44.9, adult; G47.33 Obstructive sleep apnea (adult) (pediatric)
CPT/HCPCS: 96365; 96366 ×2; 96376; 96375; 99285; 36415; 93306; 85379; 80053; 80048; 82150; 83605; 83690; 84484 ×2; 85025; 85027; 85610; 85730 ×2; 81001; 71046; 71275; 74177; G0378 ×2; J1644 ×3; J1885 ×2; J1170; Q9967

== ENCOUNTER 2024-02-16 10:21 | Observation (INO) | payer BC, MEDICARE ==
--- NOTE | 2024-02-16 11:02 | ED ---
Chest Pain HPI - General Chief Complaint: Chest Pain Stated Complaint: Pain R lung Time Seen by Provider: 02/16/24 10:38 Source: patient, RN notes reviewed Mode of arrival: ambulatory Limitations: no limitations - History of Present Illness Initial Comments: This is a 68-year-old female with a history of pulmonary embolism presenting to the emergency department chief complaint of right lower chest pain that started approximately 2 days ago. States that this pain feels similar as when she had a blood clot last year. She has been feeling mildly short of breath that is exacerbated on inspiration and with activity. She denies heart palpitations, headaches, dizziness, lightheadedness. Denies lower extremity edema/swelling. Patient states that about 2 weeks ago she had a flight back from [place]. Denies current blood thinner use. states that she is unsure of what caused her previous PE as there was no formal diagnosis made. - Related Data Home Medications Medication Instructions Recorded Confirmed Glucosam/Brandon-Msm1/C/Farhan/Bosw 1 tab PO DAILY 09/19/22 02/16/24 [Glucosamine-Chondroitin Tablet] Turmeric Root Extract [Turmeric] 500 mg PO DAILY 09/19/22 02/16/24 Aspirin EC [Ecotrin Low Dose] 81 mg PO DAILY 02/16/24 02/16/24 Cholecalciferol [Vitamin D3 (25 25 mcg PO DAILY 02/16/24 02/16/24 Mcg = 1000 Iu)] Magnesium Oxide [Magnesium] 500 mg PO DAILY 02/16/24 02/16/24 Multivit-Min/Iron/Folic/Lutein 1 tab PO DAILY 02/16/24 02/16/24 [Centrum Silver Women Tablet] Super B Complex 1 tab PO DAILY 02/16/24 02/16/24 Allergies Allergy/AdvReac Type Severity Reaction Status Date / Time No Known Allergies Allergy Verified 02/16/24 11:59 Review of Systems ROS Statement: Those systems with pertinent positive or pertinent negative responses have been documented in the HPI. ROS Other: All systems not noted in ROS Statement are negative. Past Medical History Past Medical History: No Reported History Additional Past Medical History / Comment(s): PE History of Any Multi-Drug Resistant Organisms: None Reported Past Surgical History: Section, Cholecystectomy Additional Past Surgical History / Comment(s): c section x 3, B cataract, B knee, L foot achilles tendon correction, d&c Past Anesthesia/Blood Transfusion Reactions: Previous Problems w/ Anesthesia Additional Past Anesthesia/Blood Transfusion Reaction / Comment(s): problems maintaining airway. Past Psychological History: No Psychological Hx Reported Smoking Status: Never smoker Past Alcohol Use History: Occasional Past Drug Use History: None Reported General Exam Limitations: no limitations General appearance: alert, in no apparent distress Eye exam: Present: normal appearance, PERRL, EOMI. Absent: scleral icterus, conjunctival injection, periorbital swelling ENT exam: Present: normal exam, mucous membranes moist Neck exam: Present: normal inspection. Absent: tenderness, meningismus, lymphadenopathy Respiratory exam: Present: normal lung sounds bilaterally. Absent: respiratory distress, wheezes, rales, rhonchi, stridor Cardiovascular Exam: Present: regular rate, normal rhythm, normal heart sounds. Absent: systolic murmur, diastolic murmur, rubs, gallop, clicks GI/Abdominal exam: Present: soft, normal bowel sounds. Absent: distended, tenderness, guarding, rebound, rigid Extremities exam: Present: normal inspection, full ROM, normal capillary refill. Absent: tenderness, pedal edema, joint swelling, calf tenderness Back exam: Present: normal inspection Neurological exam: Present: alert, oriented X3, CN II-XII intact Skin exam: Present: warm, dry, intact, normal color. Absent: rash Course Vital Signs 02/16/24 02/16/24 02/16/24 10:29 10:55 11:01 Temperature 98.2 F Pulse Rate 76 81 Respiratory 20 18 18 Rate Blood Pressure 148/80 153/84 O2 Sat by Pulse 98 98 Oximetry 02/16/24 13:45 Temperature Pulse Rate 77 Respiratory 18 Rate Blood Pressure 136/70 O2 Sat by Pulse 99 Oximetry Chest Pain MDM - MDM Was pt. sent in by a medical professional or institution (, PA, CLEANER, urgent care, hospital, or prison...) When possible be specific @ -No Did you speak to anyone other than the patient for history (EMS, parent, family, police, friend...)? What history was obtained from this source @ -No Did you review nursing and triage notes (agree or disagree)? Why? @ -I reviewed and agree with nursing and triage notes Were old charts reviewed (outside hosp., previous admission, EMS record, old EKG, old radiological studies, urgent care reports/EKG's, prison records)? Report findings @ -No old charts were reviewed Differential Diagnosis (chest pain, altered mental status, abdominal pain women, abdominal pain men, vaginal bleeding, weakness, fever, dyspnea, syncope, headache, dizziness, GI bleed, back pain, seizure, CVA, palpatations, mental health, musculoskeletal)? @ -Differential Chest Pain: Stable Angina, Unstable Angina, STEMI, NSTEMI Aortic Dissection, Pneumothorax, Musculoskeletal, Esophageal Spasm GERD, Cholecystitis, Pancreatitis, Zoster, this is not meant to be an all-inclusive list. EKG interpreted by me (3pts min.). @ -Completed at 1039 sinus rhythm with a ventricular rate of 81, PA interval 171, QRS 83, QTc 384 X-rays interpreted by me (1pt min.). @ -None done CT interpreted by me (1pt min.). @ -Chest CTA results reveal new bilateral pulmonary emboli when compared to prior CT chest in 09/19/2022 U/S interpreted by me (1pt. min.). @ -None done What testing was considered but not performed or refused? (CT, X-rays, U/S, labs)? Why? @ -None What meds were considered but not given or refused? Why? @ -None Did you discuss the management of the patient with other professionals (professionals i.e. , PA, CLEANER, lab, RT, psych nurse, social professionals, elevator dispatcher, teacher, chief credit officer, major case detective)? Give summary @ -spoke with [facility] internal medicine physician, Dr. White, regard to workup. Patient will be admitted and started on IV high-dose heparin. Was smoking cessation discussed for >3mins.? @ -No Was critical care preformed (if so, how long)? @ -No Were there social determinants of health that impacted care today? How? (Homelessness, low income, unemployed, alcoholism, drug addiction, transportation, low edu. Level, literacy, decrease access to med. care, penitentiary, rehab)? @ -No Was there de-escalation of care discussed even if they declined (Discuss DNR or withdrawal of care, Hospice)? DNR status @ -No What co-morbidities impacted this encounter? (DM, HTN, Smoking, COPD, CAD, Cancer, CVA, ARF, Chemo, Hep., AIDS, mental health diagnosis, sleep apnea, morbid obesity)? @ -None Was patient admitted / discharged? Hospital course, mention meds given and route, prescriptions, significant lab abnormalities, going to OR and other pertinent info. @ -Admitted. 68-year-old female with chest pain. Patient is found to have right lower chest pain that is not exacerbated on palpation. Vitals are stable with a oxygen saturation of 98% on room air, nontachycardic, not hypertensive and afebrile. She is in sinus rhythm. D-dimer elevated at 2.43. Patient underwent CT of the chest remarkable for multiple bilateral new pulmonary emboli. Troponin not elevated at less than 0.012. Patient started on high-dose heparin and will be admitted to internal medicine with hematology and pulmonology on consult. Discussed with Dr. Willett Undiagnosed new problem with uncertain prognosis? @ -No Drug Therapy requiring intensive monitoring for toxicity (Heparin, Nitro, Insulin, Cardizem)? @ -No Were any procedures done? @ -No Diagnosis/symptom? @ -pulmonary embolism Acute, or Chronic, or Acute on Chronic? @ -Acute Uncomplicated (without systemic symptoms) or Complicated (systemic symptoms)? @ -complicated Side effects of treatment? @ -No Exacerbation, Progression, or Severe Exacerbation? @ -No Poses a threat to life or bodily function? How? (Chest pain, [place], [place], pneumonia, PE, COPD, DKA, ARF, appy, cholecystitis, CVA, Diverticulitis, Homicidal, Suicidal, threat to staff... and all critical care pts) @ -yes Disposition Clinical Impression: Pulmonary embolism Disposition: ADMITTED IP TO THIS [facility] Condition: Serious Decision to Admit Reason: Admit from EC Decision Date: 02/16/24 Decision Time: 13:54
[2024-02-16 11:27] LABS: Basophils % (A) 0 %; Eosinophils # (A) 0.2 k/uL (0-0.7); Eosinophils % (A) 3 %; HGB 14.1 gm/dL (11.4-16.0); Lymphocytes # (A) 1.4 k/uL (1.0-4.8); Lymphocytes % (A) 23 %; MCH 28.6 pg (25.0-35.0); MCHC 32.7 g/dL (31.0-37.0); MCV 87.5 fL (80.0-100.0); Mean Platelet Volume 7.3; Monocytes # (A) 0.3 k/uL (0-1.0); Monocytes % (A) 5 %; Neutrophils # (A) 3.9 k/uL (1.3-7.7); Neutrophils % (A) 67 %; Platelet Count 228 k/uL (150-450); RBC 4.92 m/uL (3.80-5.40); RDW 13.8 % (11.5-15.5); WBC 5.8 k/uL (3.8-10.6)
[2024-02-16] MEDS: MORPHINE SULFATE 4 MG/ML SYRINGE IVP STA (11:34)
[2024-02-16 11:40] LABS: INR 0.9 (<1.2); Partial Thromboplastin Time 23.2 sec (22.0-30.0); Prothrombin Time 10.1 sec (10.0-12.5)
[2024-02-16 11:44] LABS: ALT 20 U/L (4-34); AST 26 U/L (14-36); African American GFR (CKD) >90 (>60 ml/min/1.73 sqM); Albumin 4.3 g/dL (3.5-5.0); Alkaline Phosphatase 131 U/L (38-126); Anion Gap 6 mmol/L; Blood Urea Nitrogen 16 mg/dL (7-17); Calcium 9.2 mg/dL (8.4-10.2); Carbon Dioxide 24 mmol/L (22-30); Chloride 108 mmol/L (98-107); Digoxin <0.4 ng/mL; Glucose 95 mg/dL (74-99); Magnesium 2.2 mg/dL (1.6-2.3); Non-African American GFR(CKD) 89 (>60 ml/min/1.73 sqM); Potassium 4.6 mmol/L (3.5-5.1); Sodium 138 mmol/L (137-145); Total Bilirubin 0.9 mg/dL (0.2-1.3); Total Protein 7.5 g/dL (6.3-8.2)
[2024-02-16 11:48] LABS: NT-Pro-B-Type Natriuretic Pept 74 pg/mL
[2024-02-16] MEDS: ONDANSETRON 4 MG/2 ML VIAL IVP STA (12:54)
--- NOTE | 2024-02-16 13:08 | CT ---
EXAMINATION TYPE: CT chest angio for PE CT DLP: 447.7 mGycm, Automated exposure control for dose reduction was used. DATE OF EXAM: 02/16/2024 12:50 PM COMPARISON: CTA chest 09/19/2022 CLINICAL INDICATION:Female, 68 years old with history of chest pain, elevated d-dimer, hx PE; chest p ain, elevated d-dimer, hx PE TECHNIQUE/CONTRAST: CTA scan of the thorax is performed with IV Contrast, patient injected with 100 mL of Isovue 370, pul monary embolism protocol. MIP images are created and reviewed. FINDINGS: Pulmonary Artery: Filling defects identified within the distal right main pulmonary artery with exten kayy into the right upper, middle, lower lobe segmental and subsegmental pulmonary arteries. Filling defects identified within the left lingular segmental and subsegmental pulmonary arteries. The pulmon geno artery is of normal size. Post contrast in the IVC. Lungs/Pleura: No evidence of focal consolidation or pneumothorax. Trace right pleural effusion redemo nstrated. Minimal dependent bilateral lower lobe subsegmental atelectasis. No suspicious pulmonary no dule or mass. Airway: Large airways are patent. Heart: Heart is within normal limits for size.. No pericardial effusion. No flattening of the interve ntricular septum. Vasculature: No evidence of aortic aneurysm. Mediastinum: No evidence of adenopathy. Musculoskeletal: No acute osseous abnormalities. DISH of the thoracic spine. Soft Tissues: Unremarkable. Lower neck: No significant findings. Upper Abdomen: No significant findings. IMPRESSION: 1. New bilateral pulmonary emboli when compared to prior CTA chest 09/19/2022. No CT evidence for rig ht heart strain at this time. 2. Stable trace right pleural effusion. Findings called to and discussed with JAIRO Valle at 1:05 PM on 02/16/2024. [facility], , 02/16/2024 1:06 PM
[2024-02-16] MEDS ORDERED: HEPARIN SODIUM 1,000 UN/ML (10ML VL) IV PRN (13:16)
[2024-02-16] MEDS: HEPARIN SODIUM 1,000 UN/ML (10ML VL) IV ONE (13:37)
[2024-02-16] MEDS: HEPARIN SOD,PORK IN 0.45% NACL 25,000 UNIT in 0.45% NACL 1 250ML.BAG IV SCH (13:39)
[2024-02-16] MEDS ORDERED: ACETAMINOPHEN TAB 325 MG TAB PO PRN (13:54)
[2024-02-16] MEDS ORDERED: MORPHINE SULFATE 4 MG/ML SYRINGE IV PRN (13:54)
[2024-02-16] MEDS ORDERED: ONDANSETRON 4 MG/2 ML VIAL IVP PRN (13:54)
[2024-02-16] MEDS ORDERED: NALOXONE 0.4 MG/ML 1 ML VIAL IV PRN (13:54)
--- NOTE | 2024-02-16 15:45 | P.CNPUL ---
History of Present Illness Consult date: 02/16/24 Reason for consult: pulmonary embolism History of present illness: 67-year-old female patient used to [employer] and currently she is living in the [place] area. The patient came into the hospital because of shortness of breath and pleuritic chest pain right under her right shoulder blade. Her symptoms started off with cough and subsequently things progressed as the patient developed shortness of breath and pleurisy and this is the same symptoms that she encountered last year when she was diagnosed having a pulmonary embolism. Based on that, the patient came into the hospital. Noted back in September 2022, she was in our facility and at that time she was diagnosed having a pulmonary embolism. CAT scan of the chest that was done on 09/19/2022 showed a filling defect in the right lower lobe pulmonary artery branch. At that time, t he patient was treated with anticoagulation and she was given Eliquis. Within 6 months of treatment, the anticoagulation was discontinued and the patient was transition to aspirin. She was doing well up to recently. She did stop the anticoagulation as the patient was encountering some skin bruising. For now, she is hemodynamically stable. She is on room air oxygen. She had a D-dimer of 2.43. The rest of the blood work was essentially within normal limits. No recent surgeries. No recent trauma. No intake of any hormonal supplements. The CT angiogram was performed in the emergency department and the patient was diagnosed having pulmonary embolism. I reviewed the CT images and the patient has bilateral pulmonary emboli and there is no evidence of any strain pattern on the right ventricle. In fact, I see filling defects in the distal right main pulmonary artery with extension into the right upper lobe, right middle lobe and right lower lobe segmental and subsegmental branches. There is also filling defect in the lingular segment in the subsegmental pulmonary arteries. The patient is currently free of any chest pain. Hemoglobin is at 14.1. She is on IV heparin. She has chronic swelling in the lower extremity and the patient wears compression stockings. No history of any DVT. No prolonged immobilization. No recent road trips, the patient had a recent airplane trip to [place] flying for a total of at least 4 hours. She went there and she came back and she was essentially asymptomatic. Troponins are negative for now. Review of Systems Constitutional: Reports weight gain Eyes: denies as per HPI, denies blurred vision, denies bulging eye, denies decreased vision, denies diplopia, denies discharge, denies dry eye, denies irritation, denies itching, denies pain, denies photophobia, denies loss of peripheral vision, denies loss of vision, denies tunnel vision/blind spots Ears: deny: decreased hearing, ear discharge, earache, tinnitus Ears, nose, mouth and throat: Reports as per HPI Breasts: absent: as per HPI, change in shape, gynecomastia, masses, nipple discharge, pain, skin changes, swelling Cardiovascular: Reports chest pain, Reports decreased exercise tolerance, Reports dyspnea on exertion Respiratory: Reports cough, Reports dyspnea Gastrointestinal: Reports as per HPI Genitourinary: Reports as per HPI Menstruation: Reports as per HPI Musculoskeletal: Reports as per HPI Musculoskeletal: absent: ankle pain, ankle stiffness, ankle swelling, as per HPI, elbow pain, elbow stiffness, elbow swelling, foot pain, foot stiffness, foot swelling, hand pain, hand stiffness, hand swelling, hip pain, hip stiffness, hip swelling, knee pain, knee stiffness, knee swelling, shoulder pain, shoulder stiffness, shoulder swelling, wrist pain, wrist stiffness, wrist swelling Integumentary: Reports as per HPI Neurological: Reports as per HPI Psychiatric: Reports as per HPI Endocrine: Reports as per HPI Hematologic/Lymphatic: Reports as per HPI Allergic/Immunologic: Reports as per HPI Past Medical History Past Medical History: No Reported History, Pulmonary Embolus (PE), Sleep Apnea/CPAP/BIPAP Additional Past Medical History / Comment(s): PE History of Any Multi-Drug Resistant Organisms: None Reported Past Surgical History: Section, Cholecystectomy Additional Past Surgical History / Comment(s): c section x 3, B cataract, B knee, L foot achilles tendon correction, d&c Past Anesthesia/Blood Transfusion Reactions: Previous Problems w/ Anesthesia Additional Past Anesthesia/Blood Transfusion Reaction / Comment(s): problems maintaining airway. Past Psychological History: No Psychological Hx Reported Smoking Status: Never smoker Past Alcohol Use History: Occasional Past Drug Use History: None Reported Medications and Allergies Home Medications Medication Instructions Recorded Confirmed Type Glucosam/Brandon-Msm1/C/Farhan/Bosw 1 tab PO DAILY 09/19/22 02/16/24 History [Glucosamine-Chondroitin Tablet] Turmeric Root Extract [Turmeric] 500 mg PO DAILY 09/19/22 02/16/24 History Aspirin EC [Ecotrin Low Dose] 81 mg PO DAILY 02/16/24 02/16/24 History Cholecalciferol [Vitamin D3 (25 25 mcg PO DAILY 02/16/24 02/16/24 History Mcg = 1000 Iu)] Magnesium Oxide [Magnesium] 500 mg PO DAILY 02/16/24 02/16/24 History Multivit-Min/Iron/Folic/Lutein 1 tab PO DAILY 02/16/24 02/16/24 History [Centrum Silver Women Tablet] Super B Complex 1 tab PO DAILY 02/16/24 02/16/24 History Allergies Allergy/AdvReac Type Severity Reaction Status Date / Time No Known Allergies Allergy Verified 02/16/24 11:59 Physical Exam Vitals: Vital Signs Temp Pulse Resp BP Pulse Ox 02/16/24 13:45 77 18 136/70 99 02/16/24 11:01 81 18 153/84 98 02/16/24 10:55 18 02/16/24 10:29 98.2 F 76 20 148/80 98 Intake and Output 02/16/24 02/16/24 02/16/24 06:59 14:59 22:59 Other: Weight 113.398 kg The patient appeared well nourished and normally developed. Vital signs as documented. Head exam is unremarkable. No scleral icterus or corneal arcus noted. Neck is without jugular venous distension, thyromegaly, or carotid bruits. Carotid upstrokes are brisk bilaterally. Lungs are clear to auscultation and percussion. Cardiac exam reveals the PMI to be normally sized and situated. Rhythm is regular. First and second heart sounds normal. No murmurs, rubs or gallops. Abdominal exam reveals normal bowel sounds, no masses, no organomegaly and no aortic enlargement. Extremities are nonedematous and both femoral and pedal pulses are normal. Examination of the skin revealed no evidence of significant rashes, suspicious appearing nevi or other concerning lesions. Neurologically, the patient is awake and alert and the patient does not have any focal neurological deficit. Cranial nerves are essentially intact. Results - Laboratory Findings CBC and BMP: 02/16/24 11:10 02/16/24 11:10 PT/INR, D-dimer PT 10.1 sec (10.0-12.5) 02/16/24 11:10 INR 0.9 (<1.2) 02/16/24 11:10 D-Dimer 2.43 mg/L FEU (<0.60) H 02/16/24 11:10 Abnormal lab findings: Abnormal Labs 02/16/24 02/16/24 11:10 11:10 D-Dimer 2.43 H Chloride 108 H Alkaline Phosphatase 131 H - Diagnostic Findings Chest x-ray: image reviewed CT scan - chest: image reviewed Assessment and Plan Plan: Acute bilateral pulmonary embolism, recurrence. The patient was diagnosed having PE back in 09/19/2022 and the patient was treated with anticoagulation with Eliquis for a total of 6 months and subsequently she was transferred to [facility]. She is coming in with acute shortness of breath and pleurisy and a CT angiogram clearly shows bilateral pulmonary embolism without any RV strain. Hemodynamically stable. Troponins are negative. Cardiac rhythm is sinus. She is currently on room air oxygen. Acute shortness of breath secondary to above Acute chest pain secondary to above Previous history of pulm embolism back in August 2022 Obstructive sleep apnea maintained on CPAP therapy Plan The patient will be kept on IV heparin Will obtain an echocardiogram to evaluate the right ventricular pressures Will obtain Doppler of the lower extremities Will continue anticoagulation with IV heparin for the next 12 to 24 hours and transition this patient to anticoagulation with Eliquis initiated dose of 10 mg twice a day for a week and following that 5 mg twice daily and I would suggest and recommend long-term anticoagulation at this point. This is a recurrent event. It could have been provoked by a recent airplane flight to [place]. Nevertheless, the patient had pulmonary embolism in the past and this occurred within 12 months. As such, she will need long-term anticoagulation. Suspect underlying hypercoagulable state in addition. Allow the patient to use her own CPAP from home we will continue to follow.
[2024-02-17 08:23] VITALS: TEMP 98.4
[2024-02-17] MEDS: MULTIVITAMINS, THERA 1 EACH TAB PO SCH (08:24)
[2024-02-17] MEDS: MAGNESIUM OXIDE 400 MG TAB PO SCH (08:24)
[2024-02-17] MEDS: CHOLECALCIFEROL 25 MCG (1000 IU) TABLET PO SCH (08:24)
[2024-02-17] MEDS ORDERED: NON FORMULARY DRUG (Super B Complex 1 TAB) PO SCH (09:00)
[2024-02-17] MEDS ORDERED: NON FORMULARY DRUG (Glucosam/Chon-Msm1/C/Mang/Bosw [Glucosamine-Chondroitin Tablet] 1 EACH PO SCH (09:00)
--- NOTE | 2024-02-17 11:42 | P.HPIM ---
History of Present Illness H&P Date: 02/16/24 Chief Complaint: Chest pain Patient is a 68-year-old female with a past medical history of pulm embolism diagnosed in August 2022 status post 6 months of anticoagulation, obstructive sleep apnea on CPAP at home, morbid obesity presents to ER with complaints of right lower chest pain worse with deep breathing and felt like her previous blood clots in the lung. Patient has been feeling cold last week. She has been coughing without sputum production. Patient currently on aspirin at home. Patient states that he had a trip to [place] by flight. CTA chest in the ER showed new bilateral pulmonary emboli when compared to prior CTA chest no CT evidence for right heart strain at this time. Stable trace right pleural effusion. Venous duplex was done which is pending at this time. EKG showed sinus rhythm with low QRS voltage in the precordial leads. Laboratory data showed WBC 5.8 hemoglobin 14.1 and platelets 228 D-dimer 2.43 sodium 138 potassium 4.6 chloride 108 bicarb is 24 BUN 16 and creatinine 0.69 and blood sugar 95. Alk phos 131 troponin x 1 negative and proBNP 74 Review of Systems Constitutional: Patient denies any fever or chills . No generalized weakness or weight loss. Abdomen: Patient denied nausea vomiting and diarrhea and abdominal pain. Cardiovascular: Patient denies any chest pain or short of breath no palpitati ons. Respiratory: patient denied any cough or sputum production. No shortness of breath Neurologic: Patient denied any numbness or tingling. no headache. Musculoskeletal: Patient denies any complaints of joint swelling or deformity. Skin: Negative Psychiatric: Negative Endocrine: No heat or cold intolerance. No recent weight gain. Genitourinary: No dysuria or hematuria. All other 14 point ROS negative except the above Past Medical History Past Medical History: No Reported History, Pulmonary Embolus (PE), Sleep Apnea/CPAP/BIPAP Additional Past Medical History / Comment(s): PE History of Any Multi-Drug Resistant Organisms: None Reported Past Surgical History: Section, Cholecystectomy Additional Past Surgical History / Comment(s): c section x 3, B cataract, B knee, L foot achilles tendon correction, d&c Past Anesthesia/Blood Transfusion Reactions: Previous Problems w/ Anesthesia Additional Past Anesthesia/Blood Transfusion Reaction / Comment(s): problems maintaining airway. Past Psychological History: No Psychological Hx Reported Smoking Status: Never smoker Past Alcohol Use History: Occasional Past Drug Use History: None Reported - Past Family History Daughter(s) Family Medical History: Blood Disorder (had to take folic acid and baby asa during preg) Medications and Allergies Home Medications Medication Instructions Recorded Confirmed Type Glucosam/Brandon-Msm1/C/Farhan/Bosw 1 tab PO DAILY 09/19/22 02/16/24 History [Glucosamine-Chondroitin Tablet] Turmeric Root Extract [Turmeric] 500 mg PO DAILY 09/19/22 02/16/24 History Aspirin EC [Ecotrin Low Dose] 81 mg PO DAILY 02/16/24 02/16/24 History Cholecalciferol [Vitamin D3 (25 25 mcg PO DAILY 02/16/24 02/16/24 History Mcg = 1000 Iu)] Magnesium Oxide [Magnesium] 500 mg PO DAILY 02/16/24 02/16/24 History Multivit-Min/Iron/Folic/Lutein 1 tab PO DAILY 02/16/24 02/16/24 History [Centrum Silver Women Tablet] Super B Complex 1 tab PO DAILY 02/16/24 02/16/24 History Apixaban [Eliquis Starter Pack 5 - 10 mg PO DIRECTED 30 Days 02/17/24 Rx (for VTE)] #1 each Allergies Allergy/AdvReac Type Severity Reaction Status Date / Time No Known Allergies Allergy Verified 02/16/24 11:59 Physical Exam Vitals: Vital Signs Temp Pulse Resp BP Pulse Ox 02/16/24 18:35 98.2 F 89 18 109/58 95 02/16/24 16:45 85 16 112/59 95 02/16/24 13:45 77 18 136/70 99 02/16/24 11:01 81 18 153/84 98 02/16/24 10:55 18 02/16/24 10:29 98.2 F 76 20 148/80 98 Intake and Output 02/16/24 02/16/24 02/16/24 06:59 14:59 22:59 Other: Weight 113.398 kg PHYSICAL EXAMINATION: Patient is lying in the bed comfortably, no acute distress, awake alert and oriented.. HEENT: Normocephalic. Neck is supple. Pupils reactive. Nostrils clear. Oral cavity is moist. Neck reveals no JVD, carotid bruits, or thyromegaly. CHEST EXAMINATION: Trachea is central. Symmetrical expansion. Lung sanchez clear to auscultation and percussion. CARDIAC: Normal S1, S2 with no gallops. No murmurs ABDOMEN: Soft. Bowel sounds normal. No organomegaly. No abdominal bruits. Extremities: reveal no edema. No clubbing or cyanosis Neurologically awake, alert, oriented x3 with well-coordinated movements. No focal deficits noted Skin: No rash or skin lesions. Psychiatric: Coperative. Nonsuicidal Musculoskeletal: No joint swelling or deformity. Normal range of motion. Results CBC & Chem 7: 02/16/24 11:10 02/16/24 11:10 Labs: Abnormal Lab Results - Last 24 Hours (Table) 02/16/24 02/16/24 Range/Units 11:10 11:10 D-Dimer 2.43 H (<0.60) mg/L FEU Chloride 108 H (98-107) mmol/L Alkaline Phosphatase 131 H (38-126) U/L Thrombosis Risk Factor Assmnt - DVT/VTE Prophylaxis DVT/VTE Prophylaxis: Pharmacologic Prophylaxis ordered Assessment and Plan Assessment: Right lower chest pain due to acute bilateral PE. Patient has prior PE in August 2022 and was on 6 months of anticoagulation with Eliquis. Right history of pulm embolism in August 2022 History of MTHFR gene mutation in both her daughters. Obstructive sleep apnea on CPAP at home Morbid obesity with BMI of 41.0 GI prophylaxis. Plan: Patient will be continued on telemonitoring. Continue with heparin drip. 2D echocardiogram was ordered and as well as bilateral lower extremity duplex scan to rule out DVT. No evidence of right heart strain as per CTA chest. Due to history of prior PE and recurrence, patient will need long-term anticoagulation. Hematology was consulted for evaluation. Continue CPAP as needed. Pulmonary is on board. Time with Patient: Greater than 30
--- NOTE | 2024-02-17 12:40 | CA ---
Transthoracic Echo Report Name: Nora Lechuga Age: 68 Gender: F : 1955 Exam Date: 02/17/2024 07:58 Exam Location: [place] [facility] Ht (in): 66 Wt (lb): 250 Ordering Physician: Cami Miranda MD Attending/Referring Phys: Can Technician Suma Senior RDCS Procedure CPT: Indications: PE Cardiac Hx: Technical Quality: Fair Contrast 1: Total Dose (mL): Contrast 2: Total Dose (mL): MEASUREMENTS (Male / Female) Normal Values 2D ECHO LV Diastolic Diameter PLAX 4.1 cm 4.2 - 5.9 / 3.9 - 5.3 cm LV Systolic Diameter PLAX 3.6 cm IVS Diastolic Thickness 1.2 cm 0.6 - 1.0 / 0.6 - 0.9 cm LVPW Diastolic Thickness 1.2 cm 0.6 - 1.0 / 0.6 - 0.9 cm LV Relative Wall Thickness 0.6 RV Internal Dim ED PLAX 3.2 cm LA Systolic Diameter LX 3.7 cm 3.0 - 4.0 / 2.7 - 3.8 cm LV Diastolic Volume MOD BP 88.3 cm??? 67 - 155 / 56 - 104 cm??? LV Systolic Volume MOD BP 40.6 cm??? 22 - 58 / 19 - 49 cm??? LV Ejection Fraction MOD BP 54.0 % >= 55 % LV Cardiac Index MOD BP 1620.6 cm???/min???m??? LV Diastolic Volume MOD 4C 75.4 cm??? LV Systolic Volume MOD 4C 32.9 cm??? LV Ejection Fraction MOD 4C 56.4 % LV Cardiac Index MOD 4C 1444.3 cm???/min???m??? LV Diastolic Length 4C 7.9 cm LV Systolic Length 4C 5.5 cm LV Diastolic Volume MOD 2C 102.7 cm??? LV Systolic Volume MOD 2C 39.4 cm??? LV Ejection Fraction MOD 2C 61.7 % LV Cardiac Index MOD 2C 2153.4 cm???/min???m??? LV Diastolic Length 2C 8.1 cm LV Systolic Length 2C 7.3 cm LA Volume 56.5 cm??? 18 - 58 / 22 - 52 cm??? LA Volume Index 24.0 cm???/m??? 16 - 28 cm???/m??? M-MODE Aortic Root Diameter MM 2.9 cm AV Cusp Separation MM 2.1 cm DOPPLER AV Peak Velocity 199.6 cm/s AV Peak Gradient 15.9 mmHg AV Mean Velocity 135.8 cm/s AV Mean Gradient 8.5 mmHg AV Velocity Time Integral 40.8 cm AI Peak Velocity 352.2 cm/s AI Peak Gradient 49.6 mmHg AI Pressure Half Time 951.1 ms MV Area PHT 4.1 cm??? Mitral E Point Velocity 92.7 cm/s Mitral A Point Velocity 134.2 cm/s Mitral E to A Ratio 0.7 MV Deceleration Time 184.8 ms TR Peak Velocity 210.2 cm/s TR Peak Gradient 17.7 mmHg Right Ventricular Systolic Press 22.7 mmHg FINDINGS Left Ventricle Left ventricular ejection fraction is estimated at 55-60 %. Left ventricular cavity size normal. Normal left ventricular systolic function with no obvious regional wall motion abnormalities. Mildly increased left ventricular wall thickness. Right Ventricle Normal right ventricular size and function. Right ventricular systolic pressure within normal limits. Right Atrium Normal right atrial size. No right atrial thrombus or mass seen. Left Atrium Mildly increased left atrial volume. No left atrial thrombus or mass present. Mitral Valve Structurally normal mitral valve. Mild mitral regurgitation. Aortic Valve Trileaflet aortic valve. No aortic stenosis. Mild aortic regurgitation.aortic valve sclerosis. Tricuspid Valve Structurally normal tricuspid valve. Mild tricuspid regurgitation. Pulmonic Valve Structurally normal pulmonic valve. No pulmonic regurgitation. Pericardium No pericardial or pleural effusion. Aorta Normal size aortic root and proximal ascending aorta. CONCLUSIONS 1. Normal left ventricle size and systolic function 2. Mild mitral, aortic and tricuspid regurgitation 3. No evidence of pulmonary hypertension Previewed by: Dr. Daniela Neil MD (Electronically Signed) Final Date: 17 February 2024 12:39
--- NOTE | 2024-02-17 14:33 | P.CONS ---
History of Present Illness - Reason for Consult Consult date: 02/17/24 PE Requesting physician: Millie Lam - Chief Complaint chest pain - History of Present Illness Mrs. Rodríguez is a 68-year-old female patient we have been consulted for because of pulmonary embolism. Patient reports that she started experiencing chest pain about 2 days ago, she states that the symptoms persisted, concerned about it as it started to cause her pain with deep inspiration, symptoms were also exacerbated with activity. Patient reports she had a PE in August 2022 and these symptoms were similar. Patient states that about 2 weeks ago she was on a flight back from [place]. In December she had approximately a 7-hour drive to [place] and back, she did stop and walk around though. Patient had unprovoked PE in August 2022, anticoagulated for 6 months with Eliquis. She was then placed on a full dose aspirin and over time transition to a baby aspirin. Patient reports that she was feeling "sick" with a cough, general malaise over the last week. When seen today patient states she is not necessarily feeling better but no new complaints. Denies any palpitations headaches, dizziness, lightheadedness. She does have a history of sleep apnea, she uses her CPAP faithfully. She personal history of cancer, current on her age-related cancer screenings. Nobody in the family has any history of blood clots that she is aware of. She does have 2 daughters that were instructed to take folate acid and a baby aspirin during (suspect MTHFR? No longer part of the hypercoagulable panel). Patient denies any other acute complaints. Review of Systems 10 point ROS is neg except as stated in HPI Past Medical History Past Medical History: No Reported History, Pulmonary Embolus (PE), Sleep Apnea/CPAP/BIPAP Additional Past Medical History / Comment(s): PE History of Any Multi-Drug Resistant Organisms: None Reported Past Surgical History: Section, Cholecystectomy Additional Past Surgical History / Comment(s): c section x 3, B cataract, B knee, L foot achilles tendon correction, d&c Past Anesthesia/Blood Transfusion Reactions: Previous Problems w/ Anesthesia Additional Past Anesthesia/Blood Transfusion Reaction / Comm: problems maintaining airway. Past Psychological History: No Psychological Hx Reported Smoking Status: Never smoker Past Alcohol Use History: Occasional Past Drug Use History: None Reported - Past Family History Daughter(s) Family Medical History: Blood Disorder (had to take folic acid and baby asa during preg) Medications and Allergies Home Medications Medication Instructions Recorded Confirmed Type Glucosam/Brandon-Msm1/C/Farhan/Bosw 1 tab PO DAILY 09/19/22 02/16/24 History [Glucosamine-Chondroitin Tablet] Turmeric Root Extract [Turmeric] 500 mg PO DAILY 09/19/22 02/16/24 History Aspirin EC [Ecotrin Low Dose] 81 mg PO DAILY 02/16/24 02/16/24 History Cholecalciferol [Vitamin D3 (25 25 mcg PO DAILY 02/16/24 02/16/24 History Mcg = 1000 Iu)] Magnesium Oxide [Magnesium] 500 mg PO DAILY 02/16/24 02/16/24 History Multivit-Min/Iron/Folic/Lutein 1 tab PO DAILY 02/16/24 02/16/24 History [Centrum Silver Women Tablet] Super B Complex 1 tab PO DAILY 02/16/24 02/16/24 History Apixaban [Eliquis Starter Pack 5 - 10 mg PO DIRECTED 30 Days 02/17/24 Rx (for VTE)] #1 each Allergies Allergy/AdvReac Type Severity Reaction Status Date / Time No Known Allergies Allergy Verified 02/16/24 11:59 Physical Exam Vitals: Vital Signs Temp Pulse Pulse Resp BP BP Pulse Ox 02/17/24 08:21 98.4 F 92 17 113/68 93 L 02/17/24 04:00 98.0 F 94 16 127/73 91 L 02/16/24 23:01 98.2 F 98 16 146/88 95 02/16/24 20:45 97.8 F 83 16 110/61 95 02/16/24 20:10 78 18 112/47 94 L 02/16/24 18:35 98.2 F 89 18 109/58 95 02/16/24 16:45 85 16 112/59 95 02/16/24 13:45 77 18 136/70 99 02/16/24 11:01 81 18 153/84 98 02/16/24 10:55 18 02/16/24 10:29 98.2 F 76 20 148/80 98 Intake and Output 02/16/24 02/17/24 02/17/24 22:59 06:59 14:59 Intake Total 132.338 107.257 Output Total 0 Balance 132.338 107.257 Intake: Intake, IV Titration 132.338 107.257 Amount Heparin Sod,Pork in 0.45% 132.338 107.257 NaCl 25,000 unit In 0.45 % NaCl 1 250ml.bag @ 18 UNITS/KG/HR 20.412 mls/hr IV .[id number] [facility] Rx#: [id number] Output: Urine 0 Other: Voiding Method Toilet Toilet Toilet # Voids 0 1 Weight 113.398 kg 115.3 kg - Constitutional General appearance: cooperative, no acute distress, obese - EENT Eyes: anicteric sclerae, EOMI ENT: hearing grossly normal, normal oropharynx - Neck Neck: no lymphadenopathy - Respiratory Respiratory: bilateral: diminished - Cardiovascular Rhythm: regular Heart sounds: normal: S1, S2 Abnormal Heart Sounds: no systolic murmur, no diastolic murmur, no rub, no S3 Gallop, no S4 Gallop, no click, no other leg Peripheral Edema: bilateral: None - Gastrointestinal General gastrointestinal: no absent bowel sounds, no decreased bowel sounds, no distended, no hepatomegaly, no hyperactive bowel sounds, normal bowel sounds, no organomegaly, no rigid, no scaphoid, soft, no splenomegaly, no tenderness, no umbilical hernia, no ventral hernia - Integumentary Integumentary: normal - Neurologic Neurologic: CNII-XII intact - Musculoskeletal Musculoskeletal: strength equal bilaterally - Psychiatric Psychiatric: A&O x's 3, appropriate affect, intact judgment & insight Results CBC & Chem 7: 02/16/24 11:10 02/16/24 11:10 Labs: Abnormal Lab Results - Last 24 Hours (Table) 02/16/24 02/16/24 02/16/24 Range/Units 11:10 11:10 18:55 APTT >200.0 H* (22.0-30.0) sec D-Dimer 2.43 H (<0.60) mg/L FEU Chloride 108 H (98-107) mmol/L Alkaline Phosphatase 131 H (38-126) U/L 02/17/24 Range/Units 02:08 APTT 138.4 H* (22.0-30.0) sec D-Dimer (<0.60) mg/L FEU Chloride (98-107) mmol/L Alkaline Phosphatase (38-126) U/L CT scan - chest: report reviewed Assessment and Plan (1) Pulmonary embolism Current Visit: Yes Status: Acute Priority: High Code(s): I26.99 - OTHER PULMONARY EMBOLISM WITHOUT ACUTE COR PULMONALE SNOMED Code(s): 99205679 Plan: Provoked pulmonary embolism Admitted for chest pain with inspiration and activity. CT angio performed, compared to CT angio 09/19/2022, impression: new bilateral pulmonary emboli when compared to the CTA 09/19/2022, no evidence for heart strain, stable trace right pleural effusion. Bilateral lower extremity Doppler report is still pending. Echo is reporting LVEF 55 to 60% no obvious wall motion abnormalities no thrombus or masses noted. Some mild valvular regurgitation, no pulmonary hypertension. -This is patient's second instance of pulmonary embolism. The first was August/2022 and there was no provoking factor, that pt knows of. Notes were reviewed from that visit (CTA must not of been done locally as it is not in the electronic medical record) no documentation of a provoking factor. No evidence of baseline bilateral lower extremity Doppler done at that time. -Patient's current pulmonary embolism felt to be provoked based on the history- recent 7-hour drive in December, flight back from [place] 2 weeks ago, and last week decreased activity due to suspect respiratory illness. -Dr. Ferrera discussed with patient that unprovoked PE, and now a provoked PE, recommendations would be for lifelong anticoagulation. Patient verbalized understanding recommendations. -Based on patient's explanation of what her daughters had to do during their pregnancies, suspect MTHFR mutation (Evidence is no longer supportive of MTHFR a s a hypercoaguable state). Hypercoagulable workup was offered. The findings would have no impact on anticoagulation decisions, patient is going to be on blood thinners lifelong. She has decided against testing for the same at this time. -Patient states she did well on Eliquis prior. Eliquis Rx has been sent, consult to case management for co-pay verification. -Continue heparin drip for now until patient's respiratory symptoms improve -F/U with Dr. Anup Ferrera All patient's questions and concerns were addressed to her satisfaction Doctor attests: I performed a history and physical examination of this patient, developed impression and plan of care. Discussed with dictator. I agree with dictators note, documented as a scribe.
[2024-02-17] MEDS: Apixaban Initiation Dose--VTE 5 MG TAB PO SCH (14:57)
[2024-02-17 15:00] VITALS: BP 136/71; PULSE 84; RESP 15
--- NOTE | 2024-02-17 19:26 | P.PN ---
Subjective Progress Note Date: 02/17/24 67-year-old female patient used to [facility] and currently she is living in the [place] area. The patient came into the hospital because of shortness of breath and pleuritic chest pain right under her right shoulder blade. Her symptoms started off with cough and subsequently things progressed as the patient developed shortness of breath and pleurisy and this is the same symptoms that she encountered last year when she was diagnosed having a pulmonary embolism. Based on that, the patient came into the hospital. Noted back in September 2022, she was in our facility and at that time she was diagnosed having a pulmonary embolism. CAT scan of the chest that was done on 09/19/2022 showed a filling defect in the right lower lobe pulmonary artery branch. At that time, the patient was treated with anticoagulation and she was given Eliquis. Within 6 months of treatment, the anticoagulation was discontinued and the patient was transition to aspirin. She was doing well up to recently. She did stop the anticoagulation as the patient was encountering some skin bruising. For now, she is hemodynamically stable. She is on room air oxygen. She had a D-dimer of 2.43. The rest of the blood work was essentially within normal limits. No recent surgeries. No recent trauma. No intake of any hormonal supplements. The CT angiogram was performed in the emergency department and the patient was diagnosed having pulmonary embolism. I reviewed the CT images and the patient has bilateral pulmonary emboli and there is no evidence of any strain pattern on the right ventricle. In fact, I see filling defects in the distal right main pulmonary artery with extension into the right upper lobe, right middle lobe and right lower lobe segmental and subsegmental branches. There is also filling defect in the lingular segment in the subsegmental pulmonary arteries. The p atient is currently free of any chest pain. Hemoglobin is at 14.1. She is on IV heparin. She has chronic swelling in the lower extremity and the patient wears compression stockings. No history of any DVT. No prolonged immobilization. No recent road trips, the patient had a recent airplane trip to [place] flying for a total of at least 4 hours. She went there and she came back and she was essentially asymptomatic. Troponins are negative for now. On 02/17/2024, the patient is being seen for a follow-up. The patient is doing extremely well. No significant respiratory distress and the patient is currently on room air oxygen. Hemodynamically stable. IV heparin has been discontinued and the patient has been started on anticoagulation with Eliquis. The patient's labs from yesterday were all within normal limits. The viral screen was negative. No pleurisy. No hemoptysis. No chest pain. No other new complaints otherwise for now. Objective - Vital Signs Vital signs: Vital Signs Temp 98.4 F 02/17/24 08:21 Pulse 84 02/17/24 14:59 Resp 15 02/17/24 14:59 BP 136/71 02/17/24 14:59 Pulse Ox 93 L 02/17/24 14:59 FiO2 Intake & Output 02/16/24 02/17/24 02/17/24 18:59 06:59 18:59 Intake Total 239.595 120 Output Total 0 Balance 239.595 120 Weight 113.398 kg 115.3 kg Intake: Intake, IV Titration 239.595 Amount Heparin Sod,Pork in 0.45% 239.595 NaCl 25,000 unit In 0.45 % NaCl 1 250ml.bag @ 18 UNITS/KG/HR 20.412 mls/hr IV .[id number] [facility] Rx#: [id number] Oral 120 Output: Urine 0 Other: Voiding Method Toilet Toilet # Voids 1 2 - Exam The patient appeared well nourished and normally developed. Vital signs as documented. The patient is currently on room air oxygen Head exam is unremarkable. No scleral icterus or corneal arcus noted. Neck is without jugular venous distension, thyromegaly, or carotid bruits. Carotid upstrokes are brisk bilaterally. Lungs are clear to auscultation and percussion. Cardiac exam reveals the PMI to be normally sized and situated. Rhythm is regular. First and second heart sounds normal. No murmurs, rubs or gallops. Abdominal exam reveals normal bowel sounds, no masses, no organomegaly and no aortic enlargement. Extremities are nonedematous and both femoral and pedal pulses are normal. Examination of the skin revealed no evidence of significant rashes, suspicious appearing nevi or other concerning lesions. Neurologically, the patient is awake and alert and the patient does not have any focal neurological deficit. Cranial nerves are essentially intact. - Labs CBC & Chem 7: 02/16/24 11:10 02/16/24 11:10 Labs: Abnormal Lab Results - Last 24 Hours (Table) 02/16/24 02/17/24 02/17/24 Range/Units 18:55 02:08 09:02 APTT >200.0 H* 138.4 H* 75.5 H (22.0-30.0) sec Assessment and Plan Plan: Acute bilateral pulmonary embolism, recurrence. The patient was diagnosed having PE back in 09/19/2022 and the patient was treated with anticoagulation with Eliquis for a total of 6 months and subsequently she was transferred to [facility]. She is coming in with acute shortness of breath and pleurisy and a CT angiogram clearly shows bilateral pulmonary embolism without any RV strain. Hemodynamically stable. Troponins are negative. Cardiac rhythm is sinus. She is currently on room air oxygen. Acute shortness of breath secondary to above Acute chest pain secondary to above Previous history of pulm embolism back in August 2022 Obstructive sleep apnea maintained on CPAP therapy Plan The patient is clinically and hemodynamically stable. No significant shortness of breath. IV heparin has been discontinued and the patient was started on anticoagulation with Eliquis. Echocardiogram was also completed and the patient was found to have a preserved LV function with an ejection fraction of 55 to 60%. No significant pulmonary hypertension. Will obtain Doppler of the lower extremities are still pending she will need long-term anticoagulation. Suspect underlying hypercoagulable state in addition. Allow the patient to use her own CPAP from home we will continue to follow. She can be potentially discharged home today to be followed up on outpatient bas is regarding anticoagulation, hypercoagulable workup and CPAP therapy.
[2024-02-18 01:45] LABS: Cardiolipin IgA Antibody <2.0 U/mL
--- NOTE | 2024-02-21 22:18 | P.DS ---
Providers Date of admission: 02/16/24 13:58 Expected date of discharge: 02/17/24 Attending physician: Madhu Cash Consults: 02/16/24 13:54 Consult Physician Routine Consulting Provider: Cami Miranda Consult Reason/Comments: pulmonary embolism Do you want consulting provider notified?: Yes, Notify in am 02/16/24 13:59 Consult Physician Routine Consulting Provider: Peter Ceja Consult Reason/Comments: recurrent PE Do you want consulting provider notified?: Yes, Notify in am Primary care physician: Physician Nonstaff Hospital Course: Discharge diagnosis Right lower chest pain due to acute bilateral PE. Patient has prior PE in August 2022 and was on 6 months of anticoagulation with Eliquis. Hypercoagulable workup as an outpatient. Right history of pulm embolism in August 2022 History of MTHFR gene mutation in both her daughters. Obstructive sleep apnea on CPAP at home Morbid obesity with BMI of 41.0 GI prophylaxis. Hospital course Patient is a 68-year-old female with a past medical history of pulm embolism diagnosed in August 2022 status post 6 months of anticoagulation, obstructive sleep apnea on CPAP at home, morbid obesity presents to ER with complaints of right lower chest pain worse with deep breathing and felt like her previous blood clots in the lung. Patient has been feeling cold last week. She has been coughing without sputum production. Patient currently on aspirin at home. Patient states that he had a trip to [place] by flight. CTA chest in the ER showed new bilateral pulmonary emboli when compared to prior CTA chest no CT evidence for right heart strain at this time. Stable trace right pleural effusion. Venous duplex was done which is pending at this time. EKG showed sinus rhythm with low QRS voltage in the precordial leads. Laboratory data showed WBC 5.8 hemoglobin 14.1 and platelets 228 D-dimer 2.43 sodium 138 potassium 4.6 chloride 108 bicarb is 24 BUN 16 and creatinine 0.69 and blood sugar 95. Alk phos 131 troponin x 1 negative and proBNP 74 02/17/2024 Patient is awake alert, oriented x 3. Sitting in the chair comfortably. On room air. No complaints of chest pain or shortness of breath today. Patient was continued on IV heparin and changed to Eliquis starter pack today. Laboratoryreviewed. Patient would like to be discharged home. Patient was also seen by oncology and recommended to continue Eliquis and outpatient follow-up for further workup. Prescription was sent to pharmacy. Patient was advised to follow-up with primary care physician and oncology as an outpatient. PHYSICAL EXAMINATION: Patient is lying in the bed comfortably, no acute distress, awake alert and oriented.. HEENT: Normocephalic. Neck is supple. Pupils reactive. Nostrils clear. Oral cavity is moist. Neck reveals no JVD, carotid bruits, or thyromegaly. CHEST EXAMINATION: Trachea is central. Symmetrical expansion. Lung sanchez clear to auscultation and percussion. CARDIAC: Normal S1, S2 with no gallops. No murmurs ABDOMEN: Soft. Bowel sounds normal. No organomegaly. No abdominal bruits. Extremities: reveal no edema. No clubbing or cyanosis Neurologically awake, alert, oriented x3 with well-coordinated movements. No focal deficits noted Skin: No rash or skin lesions. Psychiatric: Coperative. Nonsuicidal Musculoskeletal: No joint swelling or deformity. Normal range of motion. Vital signs: Vital Signs Temp 98.4 F 02/17/24 08:21 Pulse 84 02/17/24 14:59 Resp 15 02/17/24 14:59 BP 136/71 02/17/24 14:59 Pulse Ox 93 L 02/17/24 14:59 FiO2 Intake & Output 02/16/24 02/17/24 02/17/24 18:59 06:59 18:59 Intake Total 239.595 120 Output Total 0 Balance 239.595 120 Weight 113.398 kg 115.3 kg Intake: Intake, IV Titration 239.595 Amount Heparin Sod,Pork in 0.45% 239.595 NaCl 25,000 unit In 0.45 % NaCl 1 250ml.bag @ 18 UNITS/KG/HR 20.412 mls/hr IV .[id number] [facility] Rx#: [id number] Oral 120 Output: Urine 0 Other: Voiding Method Toilet Toilet # Voids 1 2 Patient Condition at Discharge: Stable Plan - Discharge Summary Discharge Rx Participant: No New Discharge Prescriptions: New Apixaban [Eliquis Starter Pack (for VTE)] 5 - 10 mg PO DIRECTED 30 Days #1 each Continue Turmeric Root Extract [Turmeric] 500 mg PO DAILY Glucosam/Brandon-Msm1/C/Farhan/Bosw [Glucosamine-Chondroitin Tablet] 1 tab PO DAILY Multivit-Min/Iron/Folic/Lutein [Centrum Silver Women Tablet] 1 tab PO DAILY Aspirin EC [Ecotrin Low Dose] 81 mg PO DAILY Super B Complex 1 tab PO DAILY Magnesium Oxide [Magnesium] 500 mg PO DAILY Cholecalciferol [Vitamin D3 (25 Mcg = 1000 Iu)] 25 mcg PO DAILY Discharge Medication List Glucosam/Brandon-Msm1/C/Farhan/Bosw [Glucosamine-Chondroitin Tablet] 1 tab PO DAILY 09/19/22 [History] Turmeric Root Extract [Turmeric] 500 mg PO DAILY 09/19/22 [History] Aspirin EC [Ecotrin Low Dose] 81 mg PO DAILY 02/16/24 [History] Cholecalciferol [Vitamin D3 (25 Mcg = 1000 Iu)] 25 mcg PO DAILY 02/16/24 [History] Magnesium Oxide [Magnesium] 500 mg PO DAILY 02/16/24 [History] Multivit-Min/Iron/Folic/Lutein [Centrum Silver Women Tablet] 1 tab PO DAILY 02/16/24 [History] Super B Complex 1 tab PO DAILY 02/16/24 [History] Apixaban [Eliquis Starter Pack (for VTE)] 5 - 10 mg PO DIRECTED 30 Days #1 each 02/17/24 [Rx] Follow up Appointment(s)/Referral(s): Douglas Fox MD [STAFF PHYSICIAN] - 1 Week (Please call to schedule apt. ) Francesco Pearson [STAFF PHYSICIAN] - 4 Weeks (Please call to schedule apt. ) Patient Instructions/Handouts: Pulmonary Embolism (DC) Activity/Diet/Wound Care/Special Instructions: Eliquis filled at [facility] location - $47 copay Discharge Disposition: HOME SELF-CARE
--- NOTE | 2024-02-22 16:29 | US ---
EXAMINATION TYPE: US venous doppler duplex LE DATE OF EXAM: 02/16/2024 2:38 PM COMPARISON: NONE CLINICAL INDICATION: Female, 68 years old with history of bilateral PE, R/O DVT; Bilateral PE. On IV heparin. No redness or swelling. Pain TECHNIQUE: The lower extremity deep venous system is examined utilizing real time linear array sonog anibal with graded compression, color doppler sonography, and spectral doppler. SIDE PERFORMED: Bilateral FINDINGS: VESSELS IMAGED: Common Femoral Vein Deep Femoral Vein Greater Saphenous Vein * Femoral Vein Popliteal Vein Small Saphenous Vein * Proximal Calf Veins (* superficial vessels) Right Leg: Negative for DVT, Color Doppler imaging shows patency of the vessels. Spectral waveforms are within normal limits. Left Leg: Negative for DVT, Color Doppler imaging shows patency of the vessels. Spectral waveforms a re within normal limits. IMPRESSION: No ultrasound evidence for deep venous thrombosis. [facility], , 02/22/2024 4:26 PM
[2024-02-22 19:42] LABS: Cardiolipin Ab IgG Interp Negative (Negative)
[2024-02-23 01:34] LABS: Cardiolipin Ab IgM Interp Negative (Negative); Cardiolipin IgM Antibody <1.5 U/mL
== END 2024-02-17 17:25 | disposition home or self-care (01) ==
LOC: EC 10:21 → INTOOBSV 13:58 → 3SCARD 13:58 → UNDODISIN 02-17 17:25
PROVIDERS: ADMIT Internal Medicine; ATTEND Internal Medicine
DX: I26.99 Other pulmonary embolism without acute cor pulmonale (principal); E66.01 Morbid (severe) obesity due to excess calories; G47.33 Obstructive sleep apnea (adult) (pediatric); Z68.41 Body mass index [BMI] 40.0-44.9, adult; Z79.82 Long term (current) use of aspirin; Z86.711 Personal history of pulmonary embolism; Z79.899 Other long term (current) drug therapy
CPT/HCPCS: 96366 ×3; 96365; 96375; 99285; 36415; 93005; 93306; 86146; 85379; 83880; 80053; 80162; 83690; 83735; 84484; 85025; 85610; 85730 ×2; 81241; 86147; 87636; 93970; 71275; G0378 ×2; J2270; J2405; J1644 ×3; Q9967